=== PATIENT | female | born 1995 ===

== ENCOUNTER 2016-12-07 12:52 | Emergency (ER) | payer MEDICAID ==
[2016-12-07 12:52] VITALS: BMI 18.6
[2016-12-07 13:06] VITALS: BP 114/76; PULSE 133; RESP 20; TEMP 98.6; O2SAT 98
[2016-12-07 13:55] LABS: ALB/GLOB RATIO 1.7 (1.0-2.1); ALBUMIN 4.9 g/dL (3.5-5.0); ALT/SGPT 28 U/L (9-52); AST/SGOT 15 U/L (14-36); BLOOD UREA NITROGEN 8 mg/dl (7-17); CALCIUM 9.8 mg/dL (8.4-10.2); GFR AFRICAN-AMERICAN > 60; GFR NON-AFRICAN AMERICAN > 60
[2016-12-07 13:56] LABS: BASO % 0.6 % (0.0-2.0); EOS % 0.4 % (0.0-4.0); HEMOGLOBIN 14.3 g/dL (12.0-16.0); LYMPH # 1.6 K/uL (1.0-4.3); MEAN CELL VOLUME 90.6 fl (81.0-99.0); MEAN CORPUSCULAR HGB CONC 33.1 g/dL (33.0-37.0); MEAN PLATELET VOLUME 11.3 fl (7.2-11.7); MONO # 0.7 K/uL (0.0-0.8); MONO % 8.2 % (0.0-10.0); NEUT # 5.6 K/uL (1.8-7.0); NEUT % 70.8 % (50.0-75.0); NRBC % 0.1 % (0.0-0.0); RBC 4.76 Mil/uL (3.80-5.20); RED CELL DISTRIBUTION WIDTH 12.7 % (11.5-14.5); WHITE BLOOD COUNT 7.9 K/uL (4.8-10.8)
[2016-12-07 14:09] LABS: SQUAMOUS EPITHIAL 4 /hpf (0-5); URINE BILIRUBIN NEGATIVE (NEGATIVE); URINE BLOOD NEGATIVE (NEGATIVE); URINE CLARITY SLIGHTY-CLOUDY (Clear); URINE COLOR YELLOW (YELLOW); URINE GLUCOSE (UA) NEG (Normal); URINE HYALINE CAST 0-2 /hpf (0-2); URINE LEUKOCYTE ESTERASE NEG Leu/uL (Negative); URINE NITRATE NEGATIVE (NEGATIVE); URINE PROTEIN NEGATIVE (NEGATIVE); URINE UROBILINOGEN 0.2-1.0 mg/dL (0.2-1.0)
[2016-12-07 14:16] LABS: INR 1.3 (0.9-1.2); PROTHROMBIN TIME 13.4 Seconds (9.8-13.1)
--- NOTE | 2016-12-07 14:42 | ED PDOC ---
HPI: Female Pain Time Seen by Provider: 12/07/16 13:06 Chief Complaint (Nursing): Female Genitourinary Chief Complaint (Provider): Female Genitourinary History Per: Patient History/Exam Limitations: no limitations Onset/Duration Of Symptoms: Days (x3days.) Associated Symptoms: denies: Nausea, Vomiting, Urinary Symptoms Additional Complaint(s): Jeanna Shetty presents to the ED for a chief complaint of vaginal bleeding onset 3days ago, with some associated lower abdominal cramping this morning. Both has since resolved. Denies any nausea, vomiting, or urinary symptoms. Of note patient is 1, Para 1, and has a history of a . PMD: None. Abnormal Vaginal Bleeding: Yes : 2 Para: 1 Past Medical History Reviewed: Historical Data, Nursing Documentation, Vital Signs Vital Signs: Last Vital Signs Temp 98.6 F 12/07/16 13:03 Pulse 133 H 12/07/16 13:03 Resp 20 12/07/16 13:03 BP 114/76 12/07/16 13:03 Pulse Ox 98 12/07/16 13:03 - Medical History PMH: No Chronic Diseases - Surgical History Surgical History: - Family History Family History: States: Unknown Family Hx - Immunization History Hx Tetanus Toxoid Vaccination: No Hx Influenza Vaccination: No Hx Pneumococcal Vaccination: No - Home Medications Home Medications: Ambulatory Orders Medication Instructions Recorded Ondansetron ODT [Zofran ODT] 4 mg PO DAILY PRN #20 odt 02/23/16 Vit Calc,Iron,Folic 1 each PO DAILY #30 tablet 12/07/16 [ Vitamins] - Allergies Allergies/Adverse Reactions: Allergies Allergy/AdvReac Type Severity Reaction Status Date / Time No Known Allergies Allergy Verified 12/25/14 13:33 Review of Systems ROS Statement: Except As Marked, All Systems Reviewed And Found Negative Gastrointestinal: Positive for: Other (Lower abdominal cramping, has since resolved.). Negative for: Nausea, Vomiting Genitourinary Female: Positive for: Vaginal Bleeding (x3days, has since resolved.). Negative for: Other (No urinary symptoms.) Physical Exam - Reviewed Nursing Documentation Reviewed: Yes Vital Signs Reviewed: Yes - Physical Exam Appears: Positive for: Well, Non-toxic, No Acute Distress Head Exam: Positive for: ATRAUMATIC, NORMAL INSPECTION, NORMOCEPHALIC Skin: Positive for: Normal Color, Warm, Dry Eye Exam: Positive for: Normal appearance, EOMI, PERRL ENT: Positive for: Normal ENT Inspection Neck: Positive for: Normal, Painless ROM Cardiovascular/Chest: Positive for: Regular Rate, Rhythm. Negative for: Murmur , Tachycardia Respiratory: Positive for: Normal Breath Sounds. Negative for: Wheezing, Respiratory Distress Gastrointestinal/Abdominal: Positive for: Normal Exam, Soft. Negative for: Tenderness Back: Positive for: Normal Inspection Rectal: Positive for: Deferred Extremity: Positive for: Normal ROM Lymphatic: Positive for: Deferred Neurologic/Psych: Positive for: Alert, Oriented - Laboratory Results Result Diagrams: 12/07/16 13:25 12/07/16 13:25 - ECG O2 Sat by Pulse Oximetry: 98 (RA) Pulse Ox Interpretation: Normal - CT Scan/US Pelvic ultrasound Other Rad Studies (CT/US): Radiology Report Reviewed (Low-lying intrauterine sac with internal yolk sac. No pole. Findings may reflect impending missed .) Medical Decision Making Medical Decision Making: Time:1306 Initial Impression: Threatened Initial Plan: * Ultrasound * Urinalysis * CBC W/ differentials * PTT * CMP * Beta-HCG Quantitative STAT * ED U-Dip * Re-Evaluation Scribe Attestation: Documented by Kasey Barnhart acting as a scribe for Ofelia Rodriguez MD. Provider Scribe Attestation: All medical record entries made by the Scribe were at my direction and personally dictated by me. I have reviewed the chart and agree that the record accurately reflects my personal performance of the history, physical exam, medical decision making, and the department course for this patient. I have also personally directed, reviewed, and agree with the discharge instructions and disposition. Disposition - Clinical Impression Clinical Impression: Threatened - Patient ED Disposition Is Patient to be Admitted: No - Disposition [facility] [Outside] Disposition: Routine/Home Disposition Time: 15:33 Condition: STABLE Prescriptions: Vit Calc,Iron,Folic [ Vitamins] 1 each PO DAILY #30 tablet Instructions: Threatened Miscarriage (ED) Forms: [employer] (Latvian) Print Language: CANADIAN
--- NOTE | 2016-12-07 15:21 | US ---
PROCEDURE: HISTORY: Vag bleeding COMPARISON: TECHNIQUE: FINDINGS: The uterus measures 7.6 x 3.9 x 5.3 centimeters. There is a low-lying intrauterine sac with an internal yolk sac. No pole is observed. The ovaries have normal appearance. There is small free fluid the pelvis. IMPRESSION: Low-lying intrauterine sac with internal yolk sac. No pole. Findings may reflect impending missed .
== END 2016-12-07 15:41 | disposition home or self-care (01) ==
LOC: H.ER 12:52
DX: O20.0 Threatened abortion (principal)